=== PATIENT | female | born 1950 | race Caucasian/White ===

== ENCOUNTER 2017-09-13 08:15 | Day surgery (SDC) ==
[2017-09-13] MEDS: CYCLOGYL 2% OPTH OP PRN ×3 (09:20→09:30)
[2017-09-13] MEDS: BETADINE OPTH PREP OP PRN ×2 (09:20→10:10)
[2017-09-13] MEDS: TETRACAINE 0.5% UNIT-DOSE OP PRN ×3 (09:20→10:17)
[2017-09-13] MEDS ORDERED: LIDOCAINE 1% 20 ML MDV ID STA (09:25)
[2017-09-13] MEDS ORDERED: ZOFRAN 4 MG/2 ML IVP ONE (09:36)
[2017-09-13] MEDS ORDERED: DEX-MOXI-KETOR OPTH INJ 1/0.5/0.4 MG/ML IO ONE (09:36)
[2017-09-13] MEDS ORDERED: BSS WITH EPINEPHRINE OP ONE (09:36)
[2017-09-13] MEDS ORDERED: LIDOCAINE 1%/PHENYLEPHRINE 1.5% BSS (SURGERY) INTRAOCULA ONE (09:36)
[2017-09-13] MEDS ORDERED: BRIMONIDINE TARTRATE 0.2% OPTH SOL OP PRN (09:36)
[2017-09-13] MEDS ORDERED: SUBLIMAZE ONE (10:15)
[2017-09-13] MEDS ORDERED: VERSED ONE (10:15)
[2017-09-13 15:58] VITALS: BP 136/78; TEMP 98.5
== END 2017-09-13 11:10 | disposition home or self-care (01) ==
LOC: SURG 08:15
PROVIDERS: ATTEND Ophthalmology
DX: H25.812 Combined forms of age-related cataract, left eye (principal)

== ENCOUNTER 2017-10-19 06:50 | Day surgery (SDC) ==
[2017-10-19] MEDS: TETRACAINE 0.5% UNIT-DOSE OP PRN ×2 (07:20→08:27)
[2017-10-19] MEDS: BETADINE OPTH PREP OP PRN ×2 (07:20→08:27)
[2017-10-19] MEDS: CYCLOGYL 2% OPTH OP PRN ×3 (07:21→07:31)
[2017-10-19] MEDS ORDERED: AK-DILATE 10% OPTH SOL OP PRN (07:24)
[2017-10-19] MEDS ORDERED: LIDOCAINE 1%/PHENYLEPHRINE 1.5% BSS (SURGERY) INTRAOCULA ONE (07:24)
[2017-10-19] MEDS ORDERED: LIDOCAINE 1% 20 ML MDV ID STA (07:24)
[2017-10-19] MEDS ORDERED: BRIMONIDINE TARTRATE 0.2% OPTH SOL OP PRN (07:24)
[2017-10-19] MEDS ORDERED: ZOFRAN 4 MG/2 ML IVP ONE (07:24)
[2017-10-19] MEDS ORDERED: DEX-MOXI-KETOR OPTH INJ 1/0.5/0.4 MG/ML IO ONE (07:24)
[2017-10-19] MEDS ORDERED: BSS WITH EPINEPHRINE OP ONE (07:24)
[2017-10-19 07:35] VITALS: TEMP 97.2
[2017-10-19] MEDS ORDERED: VERSED ONE (08:30)
[2017-10-19] MEDS ORDERED: SUBLIMAZE ONE (08:30)
[2017-10-20 11:27] VITALS: BP 128/67
== END 2017-10-19 09:10 | disposition home or self-care (01) ==
LOC: SURG 06:50
PROVIDERS: ATTEND Ophthalmology
DX: H25.811 Combined forms of age-related cataract, right eye (principal)